=== PATIENT | male | born 1950 | race Caucasian/White ===

== ENCOUNTER 2022-02-12 12:44 | Outpatient (CLI) | payer MEDICARE, SELFPAY | END 2022-02-12 12:45 | disposition home or self-care (01) | PROVIDERS: PCP Family Medicine; Visit Provider Orthopaedic Surgery Sports Medicine | DX: M19.012 Primary osteoarthritis, left shoulder (principal); Z01.818 Encounter for other preprocedural examination | CPT/HCPCS: 73200 ==

== ENCOUNTER 2022-03-28 12:09 | Outpatient (CLI) | payer MEDICARE, SELFPAY ==
[2022-03-28 22:07] LABS: Chloride* 102 mmol/L (96-114); Potassium* 4.9 mmol/L (3.6-5.1); Sodium* 136 mmol/L (135-149)
[2022-03-28 22:10] LABS: Blood Urea Nitrogen* 23 mg/dL (7-30); Carbon Dioxide* 28 mmol/L (20-32); Creatinine* 0.8 mg/dL (0.5-1.5); Estimated Glomerular Filt Rate 94 ml/min
[2022-03-28 22:11] LABS: Calcium* 9.6 mg/dL (8.4-10.6); Glucose* 104 mg/dL (60-115)
== END 2022-03-28 12:10 | disposition home or self-care (01) ==
LOC: FRMREF 12:10
PROVIDERS: PCP Family Medicine; Visit Provider Family Medicine
DX: I10 Essential (primary) hypertension (principal)
CPT/HCPCS: 80048

== ENCOUNTER 2022-03-31 08:58 | Day surgery (SDC) | payer MEDICARE, SELFPAY ==
[2022-03-31] VITALS (22 sets, daily range): BP systolic 124–172; BP diastolic 77–97; PULSE 55–80; RESP 12–18; TEMP 36.1–36.6; O2SAT 93–97; BMI 28.5
[2022-03-31] MEDS: ACETAMINOPHEN 500 MG TABLET 1000 MG PO ×3 (09:18→23:45)
[2022-03-31] MEDS: OXYCODONE (CR) 10 MG TAB.ER.12H PO (09:18)
[2022-03-31] MEDS: CELECOXIB 200 MG CAPSULE PO (09:18)
[2022-03-31] MEDS: SODIUM CHLORIDE 0.9 % (FLUSH) 10 ML SYRINGE IVF (09:30)
[2022-03-31] MEDS: LACTATED RINGERS 1000 ML 1,000 ML 100 ML IV ×2 (09:30→13:24)
--- NOTE | 2022-03-31 11:02 | SUR.PREOP ---
TIME?OUT:?1103 PT/Bailey HARTLEY RN/Ankush MONTGOMERY CRNA?VERIFICATION?OF?SURGICAL?SITE,?PROCEDURE,?AND?CONSENT OBTAINED?PRIOR?TO?INVASIVE?PROCEDURE.
[2022-03-31] MEDS: MIDAZOLAM HCL 1 MG/ML inj IVP (11:05)
[2022-03-31] MEDS: fentaNYL 100 MCG/2 ML inj IVP (11:05)
--- NOTE | 2022-03-31 11:14 | CRLHL7_ITS ---
For Patients: As a result of the Cures Act, medical imaging exams and procedure reports are released immediately into your electronic medical record. You may view this report before your referring provider. If you have questions, please contact your health care provider. Indication: Postop Technique: Two views left shoulder Comparison: No comparison Findings: Left shoulder reverse arthroplasty in satisfactory position postoperative soft tissue gas. Dictated by Mary Thomas MD @ 03/31/2022 2:55:44 PM (Electronically Signed)
[2022-03-31] MEDS: CEFAZOLIN 2 GM in 0.9 % SODIUM CHLORIDE Mini-bag 100 ML IVPB ×2 (11:30→17:01)
[2022-03-31] MEDS: TRANEXAMIC ACID 100 MG/ML INJ 1000 MG IV (11:30)
--- NOTE | 2022-03-31 13:44 | W.ANESCHARGE ---
Anesthesia Charges Start Date/Time Anesthesia Start Date: 03/31/22 Anesthesia Start Time: 11:17 Stop Date/Time Anesthesia Stop Date: 03/31/22 Anesthesia Stop Time: 13:45 Summary Emergency: No Extremes of Age: Over 69-CPT 83540
[2022-03-31] MEDS: LACTATED RINGERS 1000 ML 1,000 ML 75 ML IV (14:28)
--- NOTE | 2022-03-31 15:51 | W.PM.NB ---
Nerve Block Nerve Block Time Seen by Provider: 11:00 Date Seen: 03/31/22 Type of block requested by surgeon for post-operative analgesia: interscalene Side: left Time out performed: Yes Verification of patient name: Yes Verification of date of : Yes Site marking: site marked Name of person performing procedure: Isidoro Joseph Continuous monitoring Was continuous monitoring of O2 sat, B/P, outside production inspector, recorded every 15 minutes?: Yes Procedure Checklist: sterile prep, needles and gloves Ultrasound guided. Images saved: Yes Medications given in 5ml increments after negative aspiration: Ropivicaine %: 0.5 mL: 25 Needle gauge: 21 Decadron (mg): 10 Precedex (mcg): 25 Patient tolerated procedure well: Yes Block Charges Block Charge (with Pro Fee): Brachial Plexus Use of Ultrasound Machine for Block: Yes- US Guidance/pain block
--- NOTE | 2022-03-31 19:54 | PC.NURSE ---
Shift [id number]- Patient is drowsy, arm remains numb. He denies pain. He is up to chair for meal and to bathroom with small void. Left arm is in sling, pulse present, extremity warm. Cryocuff applied.
--- NOTE | 2022-03-31 19:59 | PM.IMCN1 ---
Date of Consult Patient: [facility] Patient Consult date: 03/31/22 Requesting Physician: Orthopedics Primary Care Provider: Sadie Isbell MD Consult Narrative Reason for consult: Postoperative medical support Narrative: Shannon Connelly is a 71 year old man with severe left shoulder arthrosis who presents for an elective left reverse total shoulder arthroplasty. This is undertaken successfully without any apparent complications. Has been suffering from the same for a long time, no longer amendable to nonsurgical supportive and intervention efforts. Review of Systems Status of ROS: Reports: 10 or more systems reviewed and unremarkable except as noted in History and below Narrative: Left shoulder is still numb all the way down to his fingertips. He tells me that shoulder block is working very well. Denies chest heaviness, pressure, tightness, or pain. Denies syncope or near-syncope. Denies dyspnea at rest, paroxysmal nocturnal dyspnea, orthopnea. No cough or dyspnea with exertion such as when he is transferring. Denies nausea or vomiting. Tolerated general anesthesia. Tolerating oral intake now. Tolerating increased activities. Bowel and bladder function are satisfactory. No focal motor neurologic deficits. No recent illness, trauma, injury. Denies fevers, rigors, diaphoresis. No recent travel. No blood loss other than during surgery which was minimal. Bowel and bladder function are satisfactory for him. [facility] Medical History Abnormal colonoscopy (04/30/10) Benign prostatic hyperplasia Daily consumption of alcohol Erectile dysfunction Hyperlipidemia Hypertension Left rotator cuff tear arthropathy Osteoarthritis of left shoulder Surgical History History of arthroscopy of left knee (~2009) History of arthroscopy of right knee (~2009) History of hernia repair (~2008) Family History Father Cardiovascular disease Colon cancer COPD (chronic obstructive pulmonary disease) Macular degeneration Mother Lupus (systemic lupus erythematosus) Sister Pancreatic cancer Social History Narrative: Smoking Status: Former smoker Do you use any of these nicotine containing products: None Second hand tobacco smoke exposure: No How often do you have a drink containing alcohol: 4 or more times a week Alcohol type: beer, wine and hard liquor How many standard drinks containing alcohol do you have on a typical day: 1 or 2 How often do you have six or more drinks on one occasion: Never AUDIT-C Alcohol total score: 4 Non-prescribed substance use: denies use Caffeine: Yes (coffee, 2-3 cups/day) service: Yes Meds Home Medications and Allergies Home Medications Medication Instructions Recorded Confirmed Type atorvastatin 20 mg tablet 20 mg PO HS 12/05/21 03/31/22 History hydrochlorothiazide 25 mg tablet 25 mg PO DAILY 12/05/21 03/31/22 History tadalafil 20 mg tablet 20 mg PO .as Direc as needed PRN 12/05/21 03/31/22 History tamsulosin 0.4 mg capsule 0.8 mg PO DAILY 12/05/21 03/31/22 History Allergies Allergy/AdvReac Type Severity Reaction Status Date / Time latex Allergy Mild Rash Verified 03/28/22 11:45 Exam Narrative: Exam Narrative: Appears comfortable and in no acute distress. Alert, oriented to self, place, time, situation. Friendly, cooperative, articulate. Mood and affect are congruent. Hearing is mildly decreased. Vision is grossly normal. Dentition in good repair. Oropharynx is benign. Midline nasal septum. No icterus or jaundice. Neck is supple. Midline trachea. No JVD, hepatojugular reflux, or carotid bruits. No lymphadenopathy. Lungs are clear to auscultation without wheezing, rhonchi, or rales. No CVA tenderness. Heart tones with regular rhythm, normal S1-S2, without murmur, gallop, or rub. Abdomen with active bowel sounds, soft, nontender. Able to move fingers on the affected left upper extremity. Aside from decreased hearing cranial nerves 3-12 are grossly normal. No other focal motor neurologic deficits aside from his left upper extremity where he had his block. Skin is warm, dry, intact. Const: Vital Signs, click to edit/add: Vital Signs - 24 hr 03/31/22 09:27 03/31/22 11:05 03/31/22 11:10 Temperature 98 F Pulse Rate 75 69 67 Pulse Rate [Pulse Oximeter] Respiratory Rate 18 18 18 Blood Pressure 169/84 H 172/95 H 155/89 H Blood Pressure [Ri ght Arm] Pulse Oximetry 97 96 94 Oxygen Delivery Me thod Room Air Nasal Cannula Nasal Cannula Oxygen Flow Rate 2 2 03/31/22 13:40 03/31/22 14:05 03/31/22 13:45 Temperature 97.6 F Pulse Rate 65 59 L 66 Pulse Rate [Pulse Oximeter] Respiratory Rate 16 12 16 Blood Pressure 124/77 128/79 128/86 Blood Pressure [Ri ght Arm] Pulse Oximetry 93 93 94 Oxygen Delivery Me thod Room Air Room Air OxyMask Oxygen Flow Rate 10 03/31/22 13:50 03/31/22 13:55 03/31/22 14:00 Temperature 97.4 F L Pulse Rate 67 60 58 L Pulse Rate [Pulse Oximeter] Respiratory Rate 14 12 14 Blood Pressure 131/83 132/80 135/79 Blood Pressure [Ri ght Arm] Pulse Oximetry 95 94 94 Oxygen Delivery Me thod OxyMask OxyMask Blow By Oxygen Flow Rate 10 10 10 03/31/22 14:10 03/31/22 14:20 03/31/22 14:30 Temperature 97.4 F L 96.9 F L 96.9 F L Pulse Rate 63 58 L Pulse Rate [Pulse Oximeter] 56 L Respiratory Rate 14 16 16 Blood Pressure 132/83 Blood Pressure [Ri ght Arm] 148/89 H 152/90 H Pulse Oximetry 94 93 Oxygen Delivery Me thod Room Air Room Air Room Air Oxygen Flow Rate 03/31/22 14:45 03/31/22 15:00 03/31/22 15:15 Temperature 96.9 F L 97.4 F L Pulse Rate Pulse Rate [Pulse Oximeter] 55 L 58 L 58 L Respiratory Rate 16 16 16 Blood Pressure Blood Pressure [Ri ght Arm] 149/88 H 144/84 H 147/87 H Pulse Oximetry 93 94 94 Oxygen Delivery Me thod Room Air Room Air Room Air Oxygen Flow Rate 03/31/22 15:45 03/31/22 16:15 03/31/22 17:15 Temperature Pulse Rate Pulse Rate [Pulse Oximeter] 63 62 65 Respiratory Rate 16 16 16 Blood Pressure Blood Pressure [Ri ght Arm] 132/85 133/85 145/89 H Pulse Oximetry 96 96 94 Oxygen Delivery Me thod Room Air Room Air Room Air Oxygen Flow Rate 03/31/22 18:15 Temperature Pulse Rate Pulse Rate [Pulse Oximeter] 69 Respiratory Rate 18 Blood Pressure Blood Pressure [Ri ght Arm] 155/88 H Pulse Oximetry 95 Oxygen Delivery Me thod Room Air Oxygen Flow Rate Documenting provider has reviewed patient's vital signs: yes Assessment and Plan Assessment and plan (1) Status post reverse total arthroplasty of left shoulder: Status: Acute (2) Osteoarthritis of left shoulder: Problem comment: Left shoulder osteoarthrosis, severe - [id number] Status: Acute (3) Left rotator cuff tear arthropathy: Status: Acute (4) Hypertension: Status: Acute (5) Benign prostatic hyperplasia: Status: Acute (6) Daily consumption of alcohol: Problem comment: Typically consumes 2-3 drinks every evening. Denies alcohol withdrawal symptoms. Status: Acute (7) Erectile dysfunction: Status: Acute Plan 1. Reviewed impression with patient. Answered his questions. 2. Will follow with Orthopedic surgery while he is in the hospital. 3. Will continue with his antihypertensive medication as well as his medication for his benign prostatic hyperplasia with urinary outlet obstruction symptoms, mainly the tamsulosin. 4. Monitor for possible alcohol withdrawal symptoms. 5. Will treat preemptively with the dose of gabapentin, stimulate LEE receptors ordinarily stimulated with his daily alcohol use. 6. Informed patient that he is drinking more alcohol than is recommended. Suggested that he decrease alcohol consumption so that he drinks at the very most 1 drink daily given his age and gender. He indicates he will take this under advisement. 7. Patient agreeable to above stated plans and recommendations.
[2022-03-31] MEDS: ATORVASTATIN 10 MG TABLET 20 MG PO (21:59)
[2022-03-31] MEDS: SENNOSIDES 1 TAB TABLET 2 TAB PO (22:00)
[2022-04-01] MEDS: CEFAZOLIN 2 GM in 0.9 % SODIUM CHLORIDE Mini-bag 100 ML IVPB ×2 (00:35→09:05)
[2022-04-01] MEDS: LACTATED RINGERS 1000 ML 1,000 ML 75 ML IV (00:36)
[2022-04-01 03:03] VITALS: BP 140/80; PULSE 63; RESP 18; TEMP 36.9; O2SAT 95
[2022-04-01] MEDS: ACETAMINOPHEN 500 MG TABLET 1000 MG PO (06:11)
--- NOTE | 2022-04-01 06:23 | PC.NURSE ---
-: pleasant and cooperative. Ax1 to assist with urinal.?No c/o pain. Pt is starting to get feeling back in his left arm, able to wiggle fingers. Dressing CDI. Cryo cuff on. VSS. ?
[2022-04-01 07:00] VITALS: BP 138/36; PULSE 75; RESP 18; TEMP 37.2; O2SAT 96
--- NOTE | 2022-04-01 08:34 | PM.ORPN ---
Subjective Subjective Date Seen: 04/01/22 Principal diagnosis: Status postop day 1 left reverse total shoulder arthroplasty Interval history: Patient reports doing well. No acute events over night. Pain managed with scheduled /PRN medications and ice. DVT prophylaxis bilateral knee high Rory stockings, and SCDs. Denies fevers, chills, aches, N/V, CP, SOB/ABRAHAM, or lightheadedness. Ortho Exam Narrative Exam Narrative: -Patient appears comfortable in recliner; no apparent acute distress -Alert and oriented times 3 -Operative shoulder swollen; soft, supple tissues; no obvious erythema. Ecchymosis minimal. Warmth appropriate -Surgical dressing clean, dry, intact; no obvious drainage, no erythematous streaking peripheral to the bandage -Bilateral calves soft and supple; no significant swelling, edema, tenderness, erythema, discoloration, warmth, or palpable cords -2+ radial pulse, intact dermatomes and myotomes distally (5/5 strength). Specifically axillary nerve intact Const Vital Signs, click to edit/add: Vital Signs - 24 hr 03/31/22 09:27 03/31/22 11:05 03/31/22 11:10 Temperature 98 F Pulse Rate 75 69 67 Pulse Rate [Pulse Oximeter] Respiratory Rate 18 18 18 Blood Pressure 169/84 H 172/95 H 155/89 H Blood Pressure [Right Arm] Pulse Oximetry 97 96 94 Oxygen Delivery Method Room Air Nasal Cannula Nasal Cannula Oxygen Flow Rate 2 2 03/31/22 13:40 03/31/22 14:05 03/31/22 13:45 Temperature 97.6 F Pulse Rate 65 59 L 66 Pulse Rate [Pulse Oximeter] Respiratory Rate 16 12 16 Blood Pressure 124/77 128/79 128/86 Blood Pressure [Right Arm] Pulse Oximetry 93 93 94 Oxygen Delivery Method Room Air Room Air OxyMask Oxygen Flow Rate 10 03/31/22 13:50 03/31/22 13:55 03/31/22 14:00 Temperature 97.4 F L Pulse Rate 67 60 58 L Pulse Rate [Pulse Oximeter] Respiratory Rate 14 12 14 Blood Pressure 131/83 132/80 135/79 Blood Pressure [Right Arm] Pulse Oximetry 95 94 94 Oxygen Delivery Method OxyMask OxyMask Blow By Oxygen Flow Rate 10 10 10 03/31/22 14:10 03/31/22 14:20 03/31/22 14:30 Temperature 97.4 F L 96.9 F L 96.9 F L Pulse Rate 63 58 L Pulse Rate [Pulse Oximeter] 56 L Respiratory Rate 14 16 16 Blood Pressure 132/83 Blood Pressure [Right Arm] 148/89 H 152/90 H Pulse Oximetry 94 93 Oxygen Delivery Method Room Air Room Air Room Air Oxygen Flow Rate 03/31/22 14:45 03/31/22 15:00 03/31/22 15:15 Temperature 96.9 F L 97.4 F L Pulse Rate Pulse Rate [Pulse Oximeter] 55 L 58 L 58 L Respiratory Rate 16 16 16 Blood Pressure Blood Pressure [Right Arm] 149/88 H 144/84 H 147/87 H Pulse Oximetry 93 94 94 Oxygen Delivery Method Room Air Room Air Room Air Oxygen Flow Rate 03/31/22 15:45 03/31/22 16:15 03/31/22 17:15 Temperature Pulse Rate Pulse Rate [Pulse Oximeter] 63 62 65 Respiratory Rate 16 16 16 Blood Pressure Blood Pressure [Right Arm] 132/85 133/85 145/89 H Pulse Oximetry 96 96 94 Oxygen Delivery Method Room Air Room Air Room Air Oxygen Flow Rate 03/31/22 18:15 03/31/22 19:15 03/31/22 20:15 Temperature 97 F L 97.2 F L Pulse Rate Pulse Rate [Pulse Oximeter] 69 74 80 Respiratory Rate 18 18 18 Blood Pressure Blood Pressure [Right Arm] 155/88 H 137/84 160/94 H Pulse Oximetry 95 96 96 Oxygen Delivery Method Room Air Room Air Room Air Oxygen Flow Rate 03/31/22 23:00 03/31/22 23:00 04/01/22 03:03 Temperature 97.7 F 98.4 F Pulse Rate Pulse Rate [Pulse Oximeter] 67 63 Respiratory Rate 18 18 18 Blood Pressure Blood Pressure [Right Arm] 151/97 H 140/80 H Pulse Oximetry 95 95 Oxygen Delivery Method Room Air Room Air Oxygen Flow Rate Assessment and Plan Assessment and plan (1) Status post reverse total arthroplasty of left shoulder: Problem details: POD1 left reverse total shoulder arthroplasty and long head biceps tenodesis Status: Acute (2) Osteoarthritis of left shoulder: Problem details: Left shoulder osteoarthrosis, severe - [id number] Status: Acute (3) Left rotator cuff tear arthropathy: Status: Acute (4) Hypertension: Status: Acute (5) Benign prostatic hyperplasia: Status: Acute (6) Daily consumption of alcohol: Problem details: Typically consumes 2-3 drinks every evening. Denies alcohol withdrawal symptoms. Status: Acute (7) Erectile dysfunction: Status: Acute Plan - Complete 23 hour perioperative antibiotics. - PT/OT consult for education and assistance. - Social work consult for discharge planning - Prescribed analgesics as needed - DVT prophylaxis: Bilateral knee high Rory Hose stockings and SCDs - Anticipation is for discharge to home with spouse 04/01/2022 if the patient remains medically stable, pain is controlled, and they are safe with mobilization.
--- NOTE | 2022-04-01 08:36 | P.DS_ITS ---
DS: Providers Provider Date Seen: 04/01/22 Date of admission: med/surg recovery 03/31/22 Primary care physician: Sadie Isbell MD Consults: 03/31/22 14:16 Consult to Occupational Therapy [CONS] Routine Comment: Reason(s) for OT Consult:: Evaluate and Treat Any Restrictions?:: See Comment Comment: Status post left reverse shoulder arthroplasty Consult to Physical Therapy [CONS] Routine Comment: Reason(s) for PT Consult:: Evaluate and Treat Any Restrictions?:: See Comment Comment: Status post left reverse shoulder arthroplasty Consult to Supply Chain Tech [CONS] Routine Comment: Reason for Consult:: Discharge Planning Needs Attending Physician on discharge: Donnie Aragon MD Date of Discharge: 04/01/22 DS: Diagnosis Discharge Diagnosis (1) Left rotator cuff tear arthropathy: Status: Acute (2) Osteoarthritis of left shoulder: Status: Acute Problem details: Left shoulder osteoarthrosis, severe - [id number] DS: Summary Hospital Course Hospital Course: The patient has a history of left shoulder osteoarthritis, primary, severe and cuff tear arthropathy. After appropriate preoperative evaluation, the patient underwent left reverse total shoulder arthroplasty and long head biceps tenodesis. Postoperatively they progressed to PT/OT and were felt ready and prepared for discharge to home with appropriate pain medication. Status at Discharge Overall status at discharge: patient is progressing back to baseline Time Spent with Patient Time attestation: Total time spent providing and/or coordinating discharge services: Time spent: Less than 30 minutes Exam Const: Vital Signs, click to edit/add: Vital Signs - 24 hr 03/31/22 09:27 03/31/22 11:05 03/31/22 11:10 Temperature 98 F Pulse Rate 75 69 67 Pulse Rate [Pulse Oximeter] Respiratory Rate 18 18 18 Blood Pressure 169/84 H 172/95 H 155/89 H Blood Pressure [Ri ght Arm] Pulse Oximetry 97 96 94 Oxygen Delivery Me thod Room Air Nasal Cannula Nasal Cannula Oxygen Flow Rate 2 2 03/31/22 13:40 03/31/22 14:05 03/31/22 13:45 Temperature 97.6 F Pulse Rate 65 59 L 66 Pulse Rate [Pulse Oximeter] Respiratory Rate 16 12 16 Blood Pressure 124/77 128/79 128/86 Blood Pressure [Ri ght Arm] Pulse Oximetry 93 93 94 Oxygen Delivery Me thod Room Air Room Air OxyMask Oxygen Flow Rate 10 03/31/22 13:50 03/31/22 13:55 03/31/22 14:00 Temperature 97.4 F L Pulse Rate 67 60 58 L Pulse Rate [Pulse Oximeter] Respiratory Rate 14 12 14 Blood Pressure 131/83 132/80 135/79 Blood Pressure [Ri ght Arm] Pulse Oximetry 95 94 94 Oxygen Delivery Me thod OxyMask OxyMask Blow By Oxygen Flow Rate 10 10 10 03/31/22 14:10 03/31/22 14:20 03/31/22 14:30 Temperature 97.4 F L 96.9 F L 96.9 F L Pulse Rate 63 58 L Pulse Rate [Pulse Oximeter] 56 L Respiratory Rate 14 16 16 Blood Pressure 132/83 Blood Pressure [Ri ght Arm] 148/89 H 152/90 H Pulse Oximetry 94 93 Oxygen Delivery Me thod Room Air Room Air Room Air Oxygen Flow Rate 03/31/22 14:45 03/31/22 15:00 03/31/22 15:15 Temperature 96.9 F L 97.4 F L Pulse Rate Pulse Rate [Pulse Oximeter] 55 L 58 L 58 L Respiratory Rate 16 16 16 Blood Pressure Blood Pressure [Ri ght Arm] 149/88 H 144/84 H 147/87 H Pulse Oximetry 93 94 94 Oxygen Delivery Me thod Room Air Room Air Room Air Oxygen Flow Rate 03/31/22 15:45 03/31/22 16:15 03/31/22 17:15 Temperature Pulse Rate Pulse Rate [Pulse Oximeter] 63 62 65 Respiratory Rate 16 16 16 Blood Pressure Blood Pressure [Ri ght Arm] 132/85 133/85 145/89 H Pulse Oximetry 96 96 94 Oxygen Delivery Me thod Room Air Room Air Room Air Oxygen Flow Rate 03/31/22 18:15 03/31/22 19:15 03/31/22 20:15 Temperature 97 F L 97.2 F L Pulse Rate Pulse Rate [Pulse Oximeter] 69 74 80 Respiratory Rate 18 18 18 Blood Pressure Blood Pressure [Ri ght Arm] 155/88 H 137/84 160/94 H Pulse Oximetry 95 96 96 Oxygen Delivery Me thod Room Air Room Air Room Air Oxygen Flow Rate 03/31/22 23:00 03/31/22 23:00 04/01/22 03:03 Temperature 97.7 F 98.4 F Pulse Rate Pulse Rate [Pulse Oximeter] 67 63 Respiratory Rate 18 18 18 Blood Pressure Blood Pressure [Ri ght Arm] 151/97 H 140/80 H Pulse Oximetry 95 95 Oxygen Delivery Me thod Room Air Room Air Oxygen Flow Rate Discharge Plan Discharge Disposition: Home, Self-Care Discharging Surgeon: Donnie Aragon Follow-Up Appointment: 1 week PO with [facility] Prescriptions: New acetaminophen 500 mg capsule 500 - 1,000 mg PO Q6H MDD 4000mg PRNQty: 100 0RF oxycodone 5 mg tablet 2.5 - 5 mg PO Q4-6H MDD 6 PRN (Reason: pain) Qty: 42 0RF Rx Instructions: Take as needed for postop pain: 2.5mg mild pain, 5mg moderate-severe pain; wean as tolerated. sennosides-docusate sodium [Senna-S] 8.6-50 mg tablet 1 - 4 tab-cap PO BID PRN (Reason: constipation) Qty: 60 0RF Rx Instructions: Hold medication if experiencing loose stools. No Action tadalafil 20 mg tablet 20 mg PO .as Direc as needed PRN hydrochlorothiazide 25 mg tablet 25 mg PO DAILY tamsulosin 0.4 mg capsule 0.8 mg PO DAILY atorvastatin 20 mg tablet 20 mg PO HS Activity Level: Activity as Tolerated and Wear Brace Activity Detail: LUE sling all times unless performing elbow ROM or pendulums Patient Instructions: Surgical Site Infections (DC) Forms: Work/Release Restrictions Follow-up: Sadie Isbell MD [Primary Care Provider] - Danny Quinonez PA-C [Physician Quality Control Auditor] - 04/08/22 9:00 am ([facility]) Discharge Orders: Discharge Order (Routine); Ordered 04/01/22 Ordered By: Danny Quinonez
[2022-04-01] MEDS: OXYCODONE 5 MG TABLET PO (08:41)
[2022-04-01] MEDS: SENNOSIDES 1 TAB TABLET 2 TAB PO (08:41)
[2022-04-01] MEDS: hydroCHLOROthiazide 25 MG TABLET PO (08:41)
[2022-04-01] MEDS: TAMSULOSIN HCL 0.4 MG CAPSULE 0.8 MG PO (08:41)
[2022-04-01 10:34] VITALS: BP 132/83; PULSE 58; RESP 18; TEMP 37.2
--- NOTE | 2022-04-01 11:01 | PC.SPIRITC ---
Addendum entered by ESVIN Ridley 04/01/22 15:43: This note was placed in error as a Spiritual Care note. It was meant to be a Social Work note. Original Note: Social work note: Social work met with patient before discharge today. Pt. states that will be at home to care for him during his recovery. Pt. expresses that home is fully accessible to him. Pt. has no further concerns at this time. Pt. knows that he can reach out to social work with any future concerns.
--- NOTE | 2022-04-01 11:59 | PC.NURSE ---
d/c instructions reviewed with patient - pt and spouse verbalized understanding. pt discharged from m/s unit at 1157
--- NOTE | 2022-04-01 15:41 | PC.SOCIAL ---
Addendum entered by ESVIN Ridley 04/01/22 15:44: Train Brake Operator reviewed and agrees with this note. Original Note: Social work note: Social work met with patient before discharge today. Pt. states that will be at home to care for him during his recovery. Pt. expresses that home is fully accessible to him. Pt. has no further concerns at this time. Pt. knows that he can reach out to social work with any future concerns.
--- NOTE | 2022-04-04 07:51 | PM.ORPRC ---
Procedure Note Date of procedure: 04/04/22 Procedure: PREOPERATIVE DIAGNOSIS: 1. Left shoulder osteoarthrosis, primary, severe with core rotator cuff integrity 2. Left long head of the biceps tendinopathy and tenosynovitis POSTOPERATIVE DIAGNOSIS: 1. Left shoulder osteoarthrosis, primary, severe with poor cuff tissue quality 2. Left long head of the biceps tendinopathy and tenosynovitis PROCEDURE: 1. Left reverse shoulder arthroplasty. 2. Left long head of biceps open tenodesis SURGEON: Donnie Aragon MD. MANAGER CONTINUOUS IMPROVEMENT: Clint ALLISON - Of note, a skilled tutoring assistant was critical for this case to aid in patient positioning, tissue retraction, limb manipulation/positioning, retraction for glenoid exposure, which was challenging, awareness and protection of critical structures, and closure. ANESTHESIA: General plus supraclavicular block IMPLANTS: DJ0 surgical Altivate humeral stem size 12 (standard shell), short with P2 porous coating vitamin E (+4 mm) poly standard socket insert RSP glenoid base plate P2 porous coating with 4 perimeter locking screws 32 neutral glenosphere with retaining screw COMPLICATIONS: None evident INDICATIONS: The patient is a pleasant 71-year-old who has experienced severe left shoulder pain and difficulty with use. Workup included imaging which revealed severe osteoarthrosis along with concern for rotator cuff quality. Physical exam was consistent with associated pain. Given the deformity, the dysfunction, and the pain, and failure of nonoperative management, recommendation was made for surgery. DESCRIPTION OF PROCEDURE: Following a thorough discussion of risks, benefits, and alternatives, consent was obtained and the left shoulder was marked. The patient was brought to the operating room and placed supine on the operating table. Induction of anesthesia was undertaken. 2 g IV Ancef and 1 g tranexamic acid was administered within 1 hr of incision preoperatively. Appropriate time-out was performed identifying proper patient, site, and procedure. The operative extremity was prepped and draped in the appropriate sterile fashion using ChloraPrep after the patient was positioned in the lazy beach chair position with head in neutral alignment and all bony prominences well padded. A longitudinal incision was made for deltopectoral approach. Deltoid was retracted laterally. Cephalic vein was small in size. It was retracted laterally as well but did require ligation during the case as a branch did agree hole with vein. The clavipectoral fascia was identified and divided longitudinally staying lateral to the conjoined tendon / coracoid. The conjoined tendon was protected with a blunt Hohmann. The long head of the biceps tendon was identified and the bicipital sheath released. The upper 1/5 of the pectoralis major was also released from its insertion. The long head of the biceps was tenodesed to the pectoralis major tendon. The remaining proximal tendon tissue was excised. The rotator cuff was inspected and found to have good integrity with the subscapularis but fair integrity with a supraspinatus], and a decision for a reverse shoulder arthroplasty was confirmed. The long head of biceps, of note, was significantly flattened, thickened, with abundant tenosynovitis. A subscapularis cuff of tissue was left via tenotomy for later repair with the remaining subscapularis released in a subperiosteal fashion with the Bovie. This was tagged for later repair. The 3 sisters were cauterized. The upper subscapularis was released from the capsule with a curved Rodriguez scissors towards the glenoid. The inferior subscapularis was divided from the capsular tissue on its caudal surface with particular caution for the axillary nerve. This was palpated anterior to the subscapularis both prior to and near the finish of the case. Inferior humeral head osteophytes were excised with caution taken throughout the case with regards to the axillary nerve. The humerus was dislocated, and humeral head cut completed. The Sizer was placed and the central drill hole created. Then a protector plate was applied. We turned our attention to the glenoid. The humerus was retracted posteriorly. The subscap was protected anteriorly and the labrum/long head biceps origin was excised circumferentially. The capsule was released along the anterior and inferior portions of the glenoid cautiously with a Thomason elevator being careful not to penetrate deep. The glenoid had appropriate exposure, and was prepared with the cannulated system with a target of approximately 5-10? of inferior tilt and neutral anteversion (patient had 8? of retroversion initially). After placing the guide pin, the tap was placed followed by the glenoid reaming with the 2 different sized Reamer. Following this, preparation was complete with this central drill, the real base plate was opened, and inserted, and excellent purchase was achieved with the central screw. Peripheral screws were then drilled, measured, and placed accordingly again achieving excellent purchase. The glenosphere was then placed consistent with the preoperative plan utilizing the above noted glenosphere. After securing the glenosphere with the locking torque limited screw, attention was turned back to the humerus. A canal finder was placed followed by various reamers. The real humeral stem was then opened and inserted with excellent metaphyseal fit and stability. Trial poly was placed and the shoulder reduced. Excellent reduction and stability achieved. At this stage, the trial implants were removed, and the real implants inserted. A 3 minute Betadine soak was performed followed by a thorough irrigation with normal saline. Subscapularis was repaired with # 1 PDS to the cuff of tissue on the lesser tuberosity. Excellent reapproximation of tissue achieved. A single far lateral rotator cuff interval suture was placed with # 0 Vicryl. Hemostasis was found to be appropriate. The deltopectoral interval was reapproximated with 0 Vicryl, subcutaneous and subcuticular closure was then performed with number 2-0 Vicryl and 4-0 Monocryl, respectively. A skilled tutoring assistant was critical for this case to aid in patient positioning, tissue retraction, limb manipulation/positioning, retraction for glenoid exposure, which was challenging, awareness and protection of critical structures, and closure. PLAN: 1. Sling at all times for the operative upper extremity. 2. AROM of elbow, forearm, wrist, and digits as tolerated. 3. PT/OT consults for education and assistance. 4. Social consult for discharge planning. 5. 23 hr perioperative antibiotics. 6. Early ambulation, and SCDs for DVT prophylaxis. 7. Admit to the hospital for the above 8. Analgesics p.r.n.
== END 2022-04-01 11:57 | disposition home or self-care (01) ==
LOC: OR 08:59 → MEDSURG 09:03
PROVIDERS: PCP Family Medicine; Visit Provider Orthopaedic Surgery Sports Medicine
PROC: 0RRJ0JZ Replacement of Right Shoulder Joint with Synthetic Substitute, Open Approach (ICD-10-PCS; CPT 23472; principal; 2022-03-31 11:15)
DX: M19.012 Primary osteoarthritis, left shoulder (principal); M75.102 Unspecified rotator cuff tear or rupture of left shoulder, not specified as traumatic; M75.22 Bicipital tendinitis, left shoulder; M25.512 Pain in left shoulder; I10 Essential (primary) hypertension; N40.0 Benign prostatic hyperplasia without lower urinary tract symptoms; Z78.9 Other specified health status; N52.9 Male erectile dysfunction, unspecified; E78.5 Hyperlipidemia, unspecified
CPT/HCPCS: 23472; 23430; 01638; 64415; 73030; 76942; 97110; 97161; 97165; 97535; 99100; A9270; C1713; C1776; J0330; J0690; J1100; J2250; J2405; J2704; J3010; J7120

== ENCOUNTER 2022-07-02 13:00 | Outpatient (RCR) | payer MEDICARE, SELFPAY ==
--- NOTE | 2022-03-05 17:18 | OT.OPGNE ---
OT Outpatient General/Neuro Eval OT Outpatient General/Neuro Eval Start: 03/05/22 17:00 Freq: Status: Active Protocol: Document 03/05/22 17:00 LCN (Rec: 03/05/22 17:18 LCN Desktop) E-signed By Kristina Lott OTR/Shazia, SHELBYT OT Outpatient Evaluation Details Type Type Eval Complexity Low Insurance Information Insurance Information Insurance Information Medicare B Insurance Information Comments BCBS Medicare Advantage Outpatient History/Precautions Medical/Functional History Medical History Reviewed Yes Prior Level of Function/Mobility Prior R and L knee arthroplasties. Pt injured L shoulder recently /late October 2021 while doing overhead therapy band exercises at home Current Condition Treatment Diagnosis L RTC tear and L shoulder OA Date of Onset 12/31/21 Social History Type of Dwelling [place] Number of Floors (Floors) 2 Number of Stairs to Enter (Stairs) 2 Lives With: Spouse Physical Barriers in Home Environment Railing Ascend Right,Railing Ascend Left Employment Status Retired Current Occupation computer engineering technologist Hobbies gardening, fish pond, travel, [place] in [place] /[place]. Stays in [place] q Jan Oriented Patient Orientation Person,Place,Time,Situation Precautions General Precautions Latex Allergy Pt educated in TSA precautions , falls prevention, positioning and edema for post -op Prior Medical History Prior Medical History H/O L and R knee arthroplasties. .Takes ASA, atorvastatin, fish oil , Vit D3. Patient Subjective Subjective Patient Subjective Pt has good questions regarding home set up and readiness for shoulder pre-op. Having great difficulty sleeping with his L RTC tear, is a side sleeper. Increased pn over night to 7/10 at L bogdan deltoid area. Objective Measures Shoulder Shoulder ROM R 130 degrees and L 90 degrees Sh FL Shoulder Strength 4-/5 SH ABD, biceps/triceps 5/ 5, balanced equal strong gas singer Home Maintenance Assessment ADL Oral Care Ability Independent Bathing Ability Independent Eating (Feeding) Ability Independent Upper Body Dressing Ability Independent Lower Body Dressing Ability Independent Grooming Ability Independent Toileting Ability Independent Ambulation Ability Independent Assistance Assistance Currently Received Pt does most of the out door chores, does cooking. cleaning and finances. Assessment Assessment Assessment Pt educated in TSA precautions , falls prevention, positioning and edema for post -op, and will be needing to add a bed wedge to educe side sleeping, vertical grab bar out side of shoulder and diagonal grab bar inside. Add shower stool. Consider hand held shower head. Pt asked insightful questions and returned demonstration of positioning for keeping shoulder precautions Occupational Therapy Treatment Plan - OP Potential Rehabilitation Potential Excellent Set Goals Goals Set with Patient Yes Goals Goals 1) After OT evaluation/ education session, pt will demonstrate understanding of 3 strategies for each of the following: TSA precautions, falls prevention, positioning and edema/pain mgmt. (GOAL MET today) Target Date 03/05/22 Progress set Treatment Plan Treatment Plan Evaluation,Education Expected Duration Comments eval/education session today only. Cont OT as inpatient after his L TSA on 03/31/22. Certification Certification I Certify That: Therapy Services Provided, Therapy Plan Established, Therapy Plan Reviewed
--- NOTE | 2022-04-14 17:11 | PT.OPE ---
PT [place] Outpatient Eval PT [facility] Outpatient Eval Start: 04/14/22 16:47 Freq: Status: Active Protocol: Document 04/14/22 16:48 MARGE (Rec: 04/14/22 17:09 MARGE Desktop) E-signed By Jeremi Vasquez, PT, ATC Physical Therapy Outpatient Evaluation Insurance Information Insurance Name Medicare B Medical Diagnosis M19.012 Primary osteoarthritis of left shoulder Z96.612 Presence of left artificial shoulder joint Treating Diagnosis L shoulder pain L shoulder stiffness L shoulder weakness Referring MD Rodríguez Subjective Subjective Chronic history of L shoulder pain and stiffness which intensified over the past year . L shoulder reverse TSA performed on 03/31/22. Recovery is going well he believes. Has not taken an Oxycodone pill since yesterday and managing pain alternating between Tylonol and Ibuprofen. Sleeping in his bed x 3-4 hours before awakening with discomfort. No pain at rest, 3 /10 occasionally with active movement (dressing or donning sling). Has returned to walking yet not yet back to his normal 45-60 min per day goal. Resides in his home with his . Leaving [place] an extended period just after [place]. Date of Surgery (If applicable) 04/01/22 Current Work Status Retired Precautions Therapy Limitations/Systems Review Not Limited Objective Range of Motion PROM: R [id number] L WNL's Strength L not tested. R 5/5 all patterns. Swelling Generalized swelling into anterior shoulder and upper L arm Palpation Tender over incision. Also tight and sore in the pectoralis, upper trapezius, posterior shoulder and interscapular muscles of the L shld complex. Sensation/Reflexes Normal and symmetric between UE's Assessment Assessment/Impression Shannon is a pleasant 71 year old man recovering from a L reverse TSA on 04/01/22. No concerns with regard to where he is at with his repair. Skilled PT recommended to facilitate return of functional ROM, strength and mobility. PT can also address pain as it occurs. Plan of Care Rehabilitation Potential Good Physical Therapy Goals 1.Decrease L shoulder pain to 1/10 or less with all ADL's. 2.L active L shoulder motion to permit independent washing of opposite shoulder and hair. 3.Return to walking x 45-60 min.s at at time while using equal and symmetric UE swing. 4.To sleep x 6 hours without interruption from L shoulder pain or stiffness. SHORT TERM GOALS by the time he leaves after [place]: 1.PROM [id number] 2.A home program for AAROM, scapular stabilization and light shoulder exrecises. Coordination/Communication With Referral Source Patient Will Be Discharged From Therapy Independent w/HEP, Independently Progressing Evaluation Billing Untimed Code Treatment Minutes 30 PT Eval No Charge No Complexity Low Certification Information Initial Certification Date 04/14/22 Ending Certification Date 07/15/22 Provider Signature Shows Agreement With POC & Medical Necessity Physician Signature & Date Requested Please Sign/Date Here Physician Comment/Change : Physician NPI Number #
== END 2022-07-02 14:30 | disposition home or self-care (01) ==
PROVIDERS: PCP Family Medicine; Visit Provider Orthopaedic Surgery Sports Medicine
DX: M19.012 Primary osteoarthritis, left shoulder (principal); Z51.89 Encounter for other specified aftercare
CPT/HCPCS: 97110; 97140; 97161; 97164; 97165

== ENCOUNTER 2022-08-15 10:00 | Outpatient (CLI) | payer MEDICARE, SELFPAY | END 2022-08-15 10:01 | disposition home or self-care (01) | LOC: NFLDREF 08-16 09:50 | PROVIDERS: PCP Family Medicine; Referring Provider Family Medicine; Visit Provider Family Medicine | DX: Z00.00 Encounter for general adult medical examination without abnormal findings (principal); E78.5 Hyperlipidemia, unspecified; I10 Essential (primary) hypertension; E11.9 Type 2 diabetes mellitus without complications; N52.9 Male erectile dysfunction, unspecified; N40.0 Benign prostatic hyperplasia without lower urinary tract symptoms; Z12.5 Encounter for screening for malignant neoplasm of prostate | CPT/HCPCS: 80053; 80061; 82043; 82570; 84153; 84156 ==

== ENCOUNTER 2022-08-27 10:43 | Outpatient (CLI) | payer MEDICARE, SELFPAY ==
--- NOTE | 2022-08-27 11:00 | CRLHL7_ITS ---
For Patients: As a result of the Century Cures Act, medical imaging exams and procedure reports are released immediately into your electronic medical record. You may view this report before your referring provider. If you have questions, please contact your health care provider. INDICATION: Abdominal aortic aneurysm screening, history of smoking TECHNIQUE: Ultrasound abdominal aorta. COMPARISON: None FINDINGS: The proximal abdominal aorta measures 2.8 centimeter x 2.8 centimeter, mid aorta measures 2.3 centimeter x 2.7 centimeter, distal aorta measures 2.1 centimeter x 2.1 centimeter right common iliac artery measures cm, and the left common iliac artery measures cm. There are no periaortic abnormalities evident. Atherosclerotic changes noted IMPRESSION: No sign of aneurysm. Atherosclerotic changes noted. Dictated by Isai Chow MD @ 08/27/2022 3:09:34 PM (Electronically Signed)
== END 2022-08-27 10:44 | disposition home or self-care (01) ==
PROVIDERS: PCP Family Medicine; Visit Provider Family Medicine
DX: Z13.6 Encounter for screening for cardiovascular disorders (principal); Z87.891 Personal history of nicotine dependence
CPT/HCPCS: 76706

== ENCOUNTER 2023-09-03 08:41 | Outpatient (CLI) | payer MEDICARE, SELFPAY | END 2023-09-03 08:42 | disposition home or self-care (01) | PROVIDERS: PCP Family Medicine; Visit Provider Family Medicine | DX: E78.2 Mixed hyperlipidemia (principal); I10 Essential (primary) hypertension | CPT/HCPCS: 80053; 80061; 82043; 82570 ==

== ENCOUNTER 2024-09-08 11:12 | Outpatient (CLI) | payer MEDICARE, SELFPAY | END 2024-09-08 11:13 | disposition home or self-care (01) | PROVIDERS: PCP Family Medicine; Visit Provider Family Medicine | DX: E78.5 Hyperlipidemia, unspecified (principal); I10 Essential (primary) hypertension; N40.0 Benign prostatic hyperplasia without lower urinary tract symptoms; Z11.59 Encounter for screening for other viral diseases; Z12.5 Encounter for screening for malignant neoplasm of prostate | CPT/HCPCS: 80053; 80061; 82043; 82570; 86803; G0103 ==

== ENCOUNTER 2024-09-21 08:53 | Outpatient (CLI) | payer MEDICARE, SELFPAY | END 2024-09-21 08:54 | disposition home or self-care (01) | PROVIDERS: PCP Family Medicine; Visit Provider Emergency Medicine | DX: D64.9 Anemia, unspecified (principal); Z79.899 Other long term (current) drug therapy | CPT/HCPCS: 82607; 82728; 83540; 83550 ==